=== PATIENT | female | born 2005 | race Caucasian/White ===

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

== ENCOUNTER 2025-01-05 10:34 | Outpatient (REF) | payer MEDICAID, SELFPAY ==
[2025-01-06 12:25] LABS: Chlamydia Result Positive (Negative); GC Result Negative (Negative)
== END 2025-01-05 10:35 | disposition home or self-care (01) ==
LOC: LBN 10:34
PROVIDERS: PCP Nurse Practitioner Pediatrics; Visit Provider Obstetrics & Gynecology
DX: Z11.3 Encounter for screening for infections with a predominantly sexual mode of transmission (principal)
CPT/HCPCS: 87491; 87591